=== PATIENT | female | born 1930 | race African-American/Black ===

== ENCOUNTER 2016-03-16 10:07 | Day surgery (SDC) | payer MEDICARE ==
[~2016-03-16 10:07] MED LIST: DORZ1SOL2 OU; LISI-587 PEG; OXYC5 PO; POTA25TA4 PEG
[2016-03-16 10:26] VITALS: BP 157/85; PULSE 69; RESP 18; TEMP 97.4; O2SAT 94
== END 2016-03-16 10:40 | disposition home or self-care (01) ==
LOC: HROP 10:07 → HRIP 10:08 → HROP 10:40
PROVIDERS: ATTEND Radiology Radiation Oncology
DX: Z43.1 Encounter for attention to gastrostomy (principal)

== ENCOUNTER 2017-09-21 06:26 | Inpatient (IN) ==
[2017-09-21] MEDS ORDERED: Acetaminophen 325 MG Tablet PO ONE (07:06)
[2017-09-21] MEDS ORDERED: Vancomycin Inj 1,000 MG in Sodium Chlor 0.9% Inj 250 ML IV.SIG ONE (07:06)
[2017-09-21] MEDS ORDERED: Piperacil/Tazo 4.5 GM Premix 4.5 GM/100 ML BAG IV.SIG ONE (07:08)
[2017-09-21] MEDS ORDERED: Sodium Chlor 0.9% Inj 500 ML IV.SIG ONE ×3 (07:09→15:42)
--- NOTE | 2017-09-21 07:12 | ED ---
HPI General Chief complaint: Weakness Stated complaint: Weakness Time Seen by Provider: 09/21/17 07:06 History of Present Illness HPI Narrative: 87-year-old female presents to the emergency department by EMS transport from home where family members have noticed her to have decreasing level of consciousness episodes of being unresponsive over the past several days. Patient appeared more weak this morning. Patient here reports that she has no chest pain no shortness of breath has some abdominal pain but mostly has rectal pain. Patient denies any other concerns or complaints. Patient was noted upon arrival triage vital signs to be tachycardic with a heart rate of 128 tachypnea with respiratory rate of 29 and febrile with temperature 102.8. Patient presented with supplemental oxygen 4 L/min nasal cannula with an O2 saturation of 94%. Patient states that she has had no cough. Patient is unable to identify exacerbating or alleviating factors. No family members are present at bedside to provide any further information. Per nursing reportedly per EMS reportedly per family patient is also had decreased urine output. Related Data Home Medications Medication Instructions Recorded Confirmed furosemide [Lasix] 40 mg PO DAILY 09/21/17 09/21/17 potassium chloride [Klor-Con 10] meq PO DAILY 09/21/17 Allergies Allergy/AdvReac Type Severity Reaction Status Date / Time No Known Allergies Allergy Uncoded 11/18/15 14:00 Review of Systems Except as stated in HPI: all other systems reviewed are negative (Limited but patient denies fever chest pain shortness of breath vomiting upper abdominal pain and family provided decreased urine output history-per nursing the) [facility] Medical History Medical History CHF (congestive heart failure) (Acute) Esophageal cancer (Acute) Glaucoma (Acute) HTN (hypertension) (Acute) Social History Social History Substance History: No History of Abuse Smoking Status: Never smoker How Often Do You Have a Drink Containing Alcohol: Never Recent Travel in [facility] within the Last 8 Weeks: No Recent Out of Country Travel within the Last 8 Weeks: No Exam Narrative Exam Narrative: GENERAL: Well-nourished, well-developed patient. Pleasant elderly female awake and oriented to name and able to answer simple questions. SKIN: Focused skin assessment warm/dry. HEAD: Normocephalic. EYES: No scleral icterus. No injection or drainage. NECK: Supple, trachea midline. No JVD or lymphadenopathy. CARDIOVASCULAR: Increased regular rate and rhythm without murmurs, gallops, or rubs. RESPIRATORY: Breath sounds equal bilaterally. No accessory muscle use. GASTROINTESTINAL: Abdomen soft, minimal suprapubic tenderness to palpation, nondistended. Rectal exam: Normal sphincter tone large bolus of very firm solid stool in the rectal vault that is brown and Hemoccult negative. MUSCULOSKELETAL: No cyanosis, or edema. Bilateral lower leg edema with dressings in place. BACK: Nontender without obvious deformity. No CVA tenderness. Course Initial Documented Vital Signs Pulse Rate 128 H 09/21/17 06:40 Respiratory Rate 29 H 09/21/17 06:40 Blood Pressure 100/61 09/21/17 06:40 Pulse Oximetry 94 L 09/21/17 06:40 Last Documented Vital Signs Temperature 102.8 F H 09/21/17 06:48 Pulse Rate 94 H 09/21/17 10:00 Respiratory Rate 22 09/21/17 10:00 Blood Pressure 91/56 L 09/21/17 10:00 Pulse Oximetry 100 09/21/17 10:00 Sign Out Sign Out Data: Patient Sign Out occurred on 09/21/17 at 09:25. Patient's care was discussed, and care was transferred from Dorcas Mcmillan MD to Pantera Cruz MD. Sign Out Comment: 87-year-old female with altered mentation with fever tachycardia tachypnea; patient will be managed for sepsis; imaging studies ordered as well CT brain noncontrast CT abdomen pelvis. Patient has received presumptive antibiotic coverage. Patient has prior history congestive heart failure will resuscitate with fluid hydration cautiously. Anticipate patient will require admission. Care signed over to oncoming physician Dr. Cruz. Last updated by Dorcas Mcmillan MD at 09/21/17 07:19 Post-Handoff Eval: This case was checked out to me by Dr. Mcmillan. I have evaluated the patient. She is critically ill. She came in in septic shock with fever and tachycardia hypotension. She has leukocytosis and elevated lactate and renal failure with a creatinine of 4. I see that she had a creatinine of 1.0 1 year ago. Chest x-ray shows a right-sided mass versus consolidation. Brain CT is negative and abdomen and pelvis CT is negative I had a lengthy discussion with the patient's daughter who lives with her. She is making her medical decisions. She is going to make her DO NOT RESUSCITATE but because she is very complicated and critically ill on placing her intensive care. Gave her An additional 1.5 L normal saline IV bolus on top of the original 500 cc. She does have history of CHF on Lasix so I am trying to hydrate her without flooding her lungs. Blood pressure initially came up to 101 systolic but now is dropped into the 90s. Tachycardia has improved and is now at 92 pulse rate I reviewed her ABG, maintaining 4 L nasal cannula I reviewed the case in detail with manager net. He will admit to [facility] and recommends chest CT which I have ordered. It will be done with no contrast. Patient is at IV vancomycin and IV Zosyn Source is likely from her legs. She has history of modest infection of the legs. Her dressings have bright green drainage on them which suggest Pseudomonas. Aggregate critical care time was 80 minutes. Time to perform other separately billable procedures was not included in the critical care time. My time did not include minutes spent treating any other patients simultaneously or on activities that did not directly contribute to the patient's treatment. The services I provided to this patient were to treat and/or prevent clinically significant deterioration that could result in: Cardiopulmonary arrest, septic shock, cardiac arrhythmia I provided critical care services requiring my management, as noted below: Chart data review, documentation time, medication orders and management, vital sign assessments/reviewing monitor data, ordering and reviewing lab tests, ordering and interpreting/reviewing x-rays and diagnostic studies, care of the patient and discussion of the patient with the admitting physicians. Patient had one peripheral IV when I took over the case. She clearly needed more IV access. I have placed bilateral external jugular IV sites so now we have [address] Medical Decision Making [facility] Narrative Medical decision making narrative: 87-year-old female presents to the emergency department from home by EMS transport for altered mentation and complaint of lower abdominal pain rectal pain as well as decreased urine output. Patient identified to have fever of 102.8 with tachypnea and tachycardia. Patient placed on phototypesetting equipment monitor with continuous pulse oximetry IV access obtained specimens collected and sent for resulting including lactic acid per sepsis protocol and blood cultures. Imaging studies ordered as well as CT brain noncontrast for altered mentation which most likely reflects patient's infectious state as well CT abdomen pelvis due to complaint of lower abdominal pain suspect may reflect large bolus of impacted stool at rectum. Patient administered IV fluid bolus urinary catheter placed and patient presumptively given Zosyn 4.5 g IV piggyback and vancomycin 1 g IV piggyback. Patient's care will be signed over to oncoming physician Differential Diagnosis Differential Diagnosis: Altered mental status, UTI, sepsis, TIA, CVA, ICH, ACS, ischemic bowel, diverticulitis, malignancy Medical Records Medical records reviewed: Yes I reviewed the patient's medical records. Multiple oncology notes from Dr. Funez regarding history of esophageal cancer last note was in 2017 provides past medical history to include hysterectomy cataract surgery hypertension CHF anemia chemotherapy and radiation therapy Lab Data Result diagrams: 09/21/17 07:22 09/21/17 07:22 Lab Results 09/21/17 09/21/17 09/21/17 Range/Units 07:22 07:22 07:22 WBC 21.1 H (4.0-11.0) th/mm3 RBC 4.94 (4.00-5.30) mil/mm3 Hgb 13.7 (11.6-15.3) gm/dL Hct 42.1 (35.0-46.0) % MCV 85.3 (80.0-100.0) fL MCH 27.7 (27.0-34.0) pg MCHC 32.5 (32.0-36.0) % RDW 15.2 (11.6-17.2) % Plt Count 214 (150-450) th/mm3 MPV 8.2 (7.0-11.0) fL Prelim Diff (Auto) Slide review pending Neut % (Auto) 90.1 H (16.0-70.0) % Lymph % (Auto) 1.9 L (9.0-44.0) % Webster % (Auto) 6.9 (0.0-8.0) % Eos % (Auto) 1.0 (0.0-4.0) % Baso % (Auto) 0.1 (0.0-2.0) % Neut # (Auto) 19.0 H (1.8-7.7) th/mm3 Lymph # (Auto) 0.4 L (1.0-4.8) th/mm3 Webster # (Auto) 1.5 H (0.0-0.9) th/mm3 Eos # (Auto) 0.2 (0.0-0.4) th/mm3 Baso # (Auto) 0.0 (0.0-0.2) th/mm3 WBC Differential . Diff Scan Auto diff confirmed Differential Comment . Platelet Estimate Normal (Normal) Platelet Morphology Normal (Normal) RBC Morphology Normal (Normal) PT 15.2 H (9.8-11.6) sec INR 1.5 Ratio Puncture Site Patient Temperature O2 Saturation (90-100) % ABG pH (7.380-7.420) ABG pCO2 (38-42) mmHg ABG pO2 (61-120) mmHg ABG HCO3 (22-26) mmol/L ABG O2 Content (12.0-20.0) Vol % ABG Base Excess (-2-2) mmol/L ABG Methemoglobin (0-2) % Brady Test Hemoglobin (12.0-16.0) G/DL Carboxyhemoglobin (0-4) % O2 Delivery Device Liter Flow L/M Critical Value Sodium 134 L (136-145) meq/L Potassium 3.6 (3.5-5.1) meq/L Chloride 94 L (98-107) meq/L Carbon Dioxide 28.3 (21.0-32.0) meq/L Anion Gap 12 (5-15) meq/L BUN 74 H (7-18) mg/dL Creatinine 4.04 H (0.50-1.00) mg/dL Estimated GFR 13 L (>89) mL/min Random Glucose 93 (74-106) mg/dL Lactic Acid (0.4-2.0) mmol/L Calcium 9.1 (8.5-10.1) mg/dL Total Bilirubin 0.9 (0.2-1.0) mg/dL AST 32 (15-37) U/L ALT 15 (10-53) U/L Alkaline Phosphatase 110 (45-117) U/L Troponin I Less than 0.02 L (0.02-0.05) ng/mL Total Protein 7.2 (6.4-8.2) g/dL Albumin 1.9 L (3.4-5.0) g/dL Lipase 35 L (73-393) U/L Urine Color (Yellw/Straw) Urine Clarity (Clear) Urine pH (5.0-8.5) Ur Specific [place] (1.002-1.035) Urine Protein (Neg-Trace) mg/dL Urine Glucose (UA) (Negative) mg/dL Urine Ketones (Negative) mg/dL Urine Occult Blood (Negative) Urine Nitrate (Negative) Urine Bilirubin (Negative) Urine Urobilinogen (Less than 2) mg/dL Ur Leukocyte Esterase (Negative) Urine RBC (0-3) /hpf Urine WBC (0-5) /hpf Urine WBC Clumps (None) Ur Squamous Epith Cells (0-5) /hpf Amorphous Sediment (None) /hpf Urine Bacteria (None) /hpf Hyaline Casts (0-3) /lpf Urine Mucus (Occasional) /lpf Micro UA Comment Urine Culture Comments 09/21/17 09/21/17 09/21/17 Range/Units 07:22 07:22 09:33 WBC (4.0-11.0) th/mm3 RBC (4.00-5.30) mil/mm3 Hgb (11.6-15.3) gm/dL Hct (35.0-46.0) % MCV (80.0-100.0) fL MCH (27.0-34.0) pg MCHC (32.0-36.0) % RDW (11.6-17.2) % Plt Count (150-450) th/mm3 MPV (7.0-11.0) fL Prelim Diff (Auto) Neut % (Auto) (16.0-70.0) % Lymph % (Auto) (9.0-44.0) % Webster % (Auto) (0.0-8.0) % Eos % (Auto) (0.0-4.0) % Baso % (Auto) (0.0-2.0) % Neut # (Auto) (1.8-7.7) th/mm3 Lymph # (Auto) (1.0-4.8) th/mm3 Webster # (Auto) (0.0-0.9) th/mm3 Eos # (Auto) (0.0-0.4) th/mm3 Baso # (Auto) (0.0-0.2) th/mm3 WBC Differential Diff Scan Differential Comment Platelet Estimate (Normal) Platelet Morphology (Normal) RBC Morphology (Normal) PT (9.8-11.6) sec INR Ratio Puncture Site Right radial Patient Temperature 98.6 O2 Saturation 96 (90-100) % ABG pH 7.42 (7.380-7.420) ABG pCO2 42 (38-42) mmHg ABG pO2 110 (61-120) mmHg ABG HCO3 27 H (22-26) mmol/L ABG O2 Content 17.3 (12.0-20.0) Vol % ABG Base Excess 2.5 H (-2-2) mmol/L ABG Methemoglobin 0.9 (0-2) % Brady Test + Hemoglobin 12.7 (12.0-16.0) G/DL Carboxyhemoglobin 1.0 (0-4) % O2 Delivery Device Nasal cannula Liter Flow 4.00 L/M Critical Value No Sodium (136-145) meq/L Potassium (3.5-5.1) meq/L Chloride (98-107) meq/L Carbon Dioxide (21.0-32.0) meq/L Anion Gap (5-15) meq/L BUN (7-18) mg/dL Creatinine (0.50-1.00) mg/dL Estimated GFR (>89) mL/min Random Glucose (74-106) mg/dL Lactic Acid 3.1 H (0.4-2.0) mmol/L Calcium (8.5-10.1) mg/dL Total Bilirubin (0.2-1.0) mg/dL AST (15-37) U/L ALT (10-53) U/L Alkaline Phosphatase (45-117) U/L Troponin I (0.02-0.05) ng/mL Total Protein (6.4-8.2) g/dL Albumin (3.4-5.0) g/dL Lipase (73-393) U/L Urine Color Lucrecia (Yellw/Straw) Urine Clarity Cloudy H (Clear) Urine pH 5.0 (5.0-8.5) Ur Specific [place] 1.016 (1.002-1.035) Urine Protein Negative (Neg-Trace) mg/dL Urine Glucose (UA) Negative (Negative) mg/dL Urine Ketones Negative (Negative) mg/dL Urine Occult Blood Small H (Negative) Urine Nitrate Negative (Negative) Urine Bilirubin Negative (Negative) Urine Urobilinogen 2.0 H (Less than 2) mg/dL Ur Leukocyte Esterase Negative (Negative) Urine RBC 5 H (0-3) /hpf Urine WBC 14 H (0-5) /hpf Urine WBC Clumps Rare H (None) Ur Squamous Epith Cells 3 (0-5) /hpf Amorphous Sediment Few H (None) /hpf Urine Bacteria Rare H (None) /hpf Hyaline Casts 43 (0-3) /lpf Urine Mucus Few H (Occasional) /lpf Micro UA Comment Cath-culture ind Urine Culture Comments Cath-cult indicated Imaging Data Radiologist's impression: Abdomen/Pelvis CT 09/21/17 07:06 CONCLUSION: 1. Bladder is decompressed secondary to Lambert catheter. No evidence for obstructive uropathy. 2. 2 mm nonobstructing calyceal calculus in the inferior pole of the left kidney. 3. Moderate amount of stool in the rectum. 4. Colonic diverticulosis without definitive evidence for diverticulitis. 5. Additional stable ancillary findings, as above. Chest X-Ray 09/21/17 07:06 CONCLUSION: New irregular opacification of the right mid-upper lung and right perihilar region. Underlying mass is not excluded. If clinically warranted, chest CT could be performed for further evaluation. Head CT 09/21/17 07:06 CONCLUSION: 1. Senescent changes without acute intracranial abnormality. . Discharge Plan Discharge Disposition Patient Disposition: 30 Still Patient Discharge Condition Condition: Critical Discharge Details Diagnosis: Septic shock, Acute renal injury due to sepsis Physicians Team ED Provider: Pantera Cruz Attending Provider: Danyell Sanchez Discharge Interventions Interventions: Vital Signs Last Done: 09/21/17 08:00 Status ED Status: Admitted Patient
--- NOTE | 2017-09-21 07:34 | XR ---
EXAM DATE: 09/21/2017 7:29 AM EDT AGE/SEX: 87 years / Female INDICATIONS: Shortness of breath. CLINICAL DATA: This is the patient's initial encounter. Patient reports that signs and symptoms have been present for 1 day and indicates a pain score of Nonresponsive. MEDICAL/SURGICAL HISTORY: Cardiovascular disease. Non-responsive. COMPARISON: [facility] [place], CHEST SINGLE AP, 11/18/2015. . FINDINGS: A single AP view of the chest demonstrates interval development of irregular opacification of the rig ht mid-upper lung and right perihilar region. Left lung remains clear. No significant pleural effusio n. Cardiac silhouette size is stable. Mild curvature of the visualized spine may be at least partiall y positional. CONCLUSION: New irregular opacification of the right mid-upper lung and right perihilar region. Underlying mass i s not excluded. If clinically warranted, chest CT could be performed for further evaluation. Electronically signed by: Denise Vila MD 09/21/2017 7:33 AM EDT
[2017-09-21 07:46] LABS: Baso % (Auto) 0.1 % (0.0-2.0); Eos # (Auto) 0.2 th/mm3 (0.0-0.4); Hematocrit 42.1 % (35.0-46.0); Hemoglobin 13.7 gm/dL (11.6-15.3); Lymph # (Auto) 0.4 th/mm3 (1.0-4.8); Lymph % (Auto) 1.9 % (9.0-44.0); Mean Corpuscular HGB Conc 32.5 % (32.0-36.0); Mean Corpuscular Hemoglobin 27.7 pg (27.0-34.0); Mean Corpuscular Volume 85.3 fL (80.0-100.0); Mean Platelet Volume 8.2 fL (7.0-11.0); Mono # (Auto) 1.5 th/mm3 (0.0-0.9); Mono % (Auto) 6.9 % (0.0-8.0); Neut % (Auto) 90.1 % (16.0-70.0); Platelet Count 214 th/mm3 (150-450); Red Blood Count 4.94 mil/mm3 (4.00-5.30); Red Cell Distribution Width 15.2 % (11.6-17.2); White Blood Count 21.1 th/mm3 (4.0-11.0)
--- NOTE | 2017-09-21 07:54 | CT ---
EXAM DATE: 09/21/2017 7:48 AM EDT AGE/SEX: 87 years / Female INDICATIONS: Altered mental status. Abdominal and rectal pain, with decreased urine out put CLINICAL DATA: This is the patient's initial encounter. Patient reports that signs and symptoms have been present for 1 day and indicates a pain score of 4/10. MEDICAL/SURGICAL HISTORY: Carcinoma, esophageal. None. RADIATION DOSE: 66.34 CTDI (mGy) COMPARISON: No prior exams available for comparison. TECHNIQUE: CT of the head without contrast. Using automated exposure control and adjustment of the mA and/or kV according to patient size, radiation dose was kept as low as reasonably achievable to ob tain optimal diagnostic quality images. DICOM format image data is available electronically for revi ew and comparison. FINDINGS: Cerebrum: Moderate diffuse cerebral atrophy. The ventricles are normal for degree of atrophy. No mark dence of midline shift, mass lesion, hemorrhage or acute infarction. No extraaxial fluid collections are seen. Posterior Fossa: The cerebellum and brainstem are intact. The 4th ventricle is midline. The cerebe llopontine angle is unremarkable. Extracranial: The visualized portion of the orbits is intact. Skull: The calvaria is intact. No evidence of skull fracture. CONCLUSION: 1. Senescent changes without acute intracranial abnormality. . Electronically signed by: Ravinder Cook MD 09/21/2017 7:53 AM EDT
[2017-09-21 07:56] LABS: Amorphous Sediment,Urine Few /hpf; Bacteria,Urine Rare /hpf; Bilirubin,Urine Negative (Negative); Clarity,Urine Cloudy (Clear); Color,Urine Amber (Yellw/Straw); Glucose,Urine (UA) Negative (Negative); Hyaline Casts,Urine 43 /lpf (0-3); INR 1.5 Ratio; Leukocyte Esterase,Urine Negative (Negative); Mucus,Urine Few /lpf (Occasional); Nitrite,Urine Negative (Negative); Prothrombin Time 15.2 sec (9.8-11.6); Specific Gravity,Urine 1.016 (1.002-1.035); Squamous Epithelial Cell,Urine 3 /hpf (0-5)
--- NOTE | 2017-09-21 08:00 | CT ---
EXAM DATE: 09/21/2017 7:49 AM EDT AGE/SEX: 87 years / Female INDICATIONS: Abdominal and rectal pain with decreased urine output CLINICAL DATA: This is the patient's initial encounter. Patient reports that signs and symptoms have been present for 1 day and indicates a pain score of 4/10. MEDICAL/SURGICAL HISTORY: Carcinoma, esophageal. None. RADIATION DOSE: 9.76 CTDI (mGy) COMPARISON: [facility], CT ABDOMEN W/O CONTRAST, 12/27/2016. . TECHNIQUE: Multiple contiguous axial images were obtained through the abdomen. Images were obtained using multiple row detector helical technique. Using automated exposure control and adjustment of the mA and/or kV according to patient size, radiation dose was kept as low as reasonably achievable to o btain optimal diagnostic quality images. DICOM format image data is available electronically for rev iew and comparison. FINDINGS: LOWER LUNGS: Trace right basilar pleural effusion and associated airspace disease. LIVER: Stable subcentimeter hypodense cystic lesion in segment 2 of the liver. Liver otherwise demon strates uniform density without intrahepatic ductal dilatation. Hyperdense material noted dependently in the gallbladder may reflect small stones or sludge. SPLEEN: Homogeneous density without enlargement. PANCREAS: Unremarkable without mass or calcification. KIDNEYS: Kidneys are symmetrical in size and without hydronephrosis. There is a 2 mm calyceal calcul us in the inferior pole of the left kidney. No significant contour deforming abnormalities. ADRENAL GLANDS: Unremarkable. AORTA: Amie-aneurysmal. BOWEL/MESENTERY: Moderate amount of stool in the rectum. Scattered colonic diverticula and moderate sigmoid diverticulosis. No definitive inflammatory change to suggest diverticulitis. Bowel are normal in caliber without evidence for obstruction. There is no free fluid or drainable fluid collections. No free air or pneumatosis. ABDOMINAL WALL: Intact. RETROPERITONEUM: No evidence of adenopathy in the retrocrural, para-aortic, or deep pelvic regions. BLADDER: Bladder is decompressed secondary to Lambert catheter. REPRODUCTIVE: Uterus is not visualized and likely surgically absent. BONY STRUCTURES: Mild levoscoliosis with multilevel degenerative spondylosis of the lumbar spine. CONCLUSION: 1. Bladder is decompressed secondary to Lambert catheter. No evidence for obstructive uropathy. 2. 2 mm nonobstructing calyceal calculus in the inferior pole of the left kidney. 3. Moderate amount of stool in the rectum. 4. Colonic diverticulosis without definitive evidence for diverticulitis. 5. Additional stable ancillary findings, as above. Electronically signed by: Ravinder Cook MD 09/21/2017 7:59 AM EDT
[2017-09-21 08:19] LABS: Albumin 1.9 g/dL (3.4-5.0); Anion Gap 12 meq/L (5-15); Aspartate Aminotransferase 32 U/L (15-37); Blood Urea Nitrogen 74 mg/dL (7-18); Calcium 9.1 mg/dL (8.5-10.1); Carbon Dioxide 28.3 meq/L (21.0-32.0); Chloride 94 meq/L (98-107); Glomerular Filtration Rate 13 mL/min (>89); Glucose,Random 93 mg/dL (74-106); Lipase 35 U/L (73-393); Potassium 3.6 meq/L (3.5-5.1); Sodium 134 meq/L (136-145)
[2017-09-21 08:20] LABS: Alanine Aminotransferase 15 U/L (10-53)
[2017-09-21 08:24] LABS: Alkaline Phosphatase 110 U/L (45-117); Total Protein 7.2 g/dL (6.4-8.2)
[2017-09-21 08:27] LABS: Platelet Estimate Normal (Normal); Platelet Morphology Normal (Normal); RBC Morphology Normal (Normal)
[2017-09-21] MEDS ORDERED: Acetaminophen 650 MG Supp RECTAL ONE (09:25)
[2017-09-21] MEDS ORDERED: Acetaminophen 325 MG Supp RECTAL ONE (09:26)
[2017-09-21] MEDS ORDERED: Sod Chloride 0.9% Inj 1,000 ML IV.SIG ONE (09:26)
[2017-09-21 09:43] LABS: ABG Base Excess 2.5 mmol/L (-2-2); ABG PCO2 42 mmHg (38-42); ABG PO2 110 mmHg (61-120)
[2017-09-21] MEDS ORDERED: Piperacil/Tazo 3.375 GM Premix 50 ML IV.SIG SCH (10:45)
[2017-09-21] MEDS ORDERED: Dextrose 50% in Water 50 ML Vial IV.PUSH PRN (10:50)
[2017-09-21] MEDS ORDERED: Vancomycin Consult Pharmacy 1 EACH OTHER SCH (11:00)
[2017-09-21] MEDS ORDERED: Heparin - SQ 10,000 UNITS/ML Vial SQ SCH (11:00)
--- NOTE | 2017-09-21 11:25 | CT ---
EXAM DATE: 09/21/2017 11:10 AM EDT AGE/SEX: 87 years / Female INDICATIONS: Evaluate for mass. CLINICAL DATA: This is the patient's initial encounter. Patient reports that signs and symptoms have been present for 1 day and indicates a pain score of 0/10. MEDICAL/SURGICAL HISTORY: Congestive heart failure. Hypertension. esophageal cancer None. RADIATION DOSE: 7.37 CTDI (mGy) COMPARISON: [facility] [place], CT THORAX W CONTRAST, 11/19/2015. . TECHNIQUE: Multiple contiguous axial images were obtained through the chest without contrast. Image s were obtained in suspended respiration using multiple row detector helical technique. Using automa kwame exposure control and adjustment of the mA and/or kV according to patient size, radiation dose was kept as low as reasonably achievable to obtain optimal diagnostic quality images. DICOM format imag e data is available electronically for review and comparison. FINDINGS: Lungs: There is a large multiseptated thin-walled cavity at the right lung apex containing small air -fluid level at its dependent portion. This finding is new when compared to the prior CT of 11/19/2015 . Large area of right upper lobe confluent opacity indicating pulmonary consolidation. Air bronchogra ms are noted. The consolidation also involves the medial right middle lobe. The left lung is clear. Mediastinum: No enlarged lymph nodes identified. There is marked dilatation with air-fluid level of the proximal to mid esophagus. Patient has a history of known esophageal cancer. Coronary artery calc ifications are noted. Mild diffuse prominence of the ascending aorta measuring 4.3 cm in diameter elly ssly unchanged from prior CT. Pleurae: Small right pleural effusion. Axillae: Unremarkable. Bony Structures: Unremarkable. Miscellaneous: Upper abdomen described on CT abdomen report. CONCLUSION: 1. Large area of right upper lobe pulmonary consolidation. Adjacent large thin-walled cavity with ai r-fluid level. This finding is new when compared to prior CT of 2016. No discrete central mass is neal ntified. Recommend follow-up to radiographic resolution. 2. Dilated proximal to mid esophagus again seen. Patient has known history of esophageal cancer. 3. Small right pleural effusion. Electronically signed by: Marcin Matt MD 09/21/2017 11:23 AM EDT
[2017-09-21] MEDS: Dextrose 5%/NaCl 0.9% Inj 1,000 ML IV.CONT SCH (11:33)
[2017-09-21] MEDS: Insulin NovoLOG Aspart Correctional Sugar Inj SQ SCH ×2 (11:37→17:54)
--- NOTE | 2017-09-21 13:43 | MH ---
cc: Danyell Sanchez MD DATE OF ADMISSION: 09/21/2017 HISTORY OF PRESENT ILLNESS: The patient is an 87-year-old female with a past medical history of hypertension, CHF, esophageal cancer, status post chemotherapy and radiation 1 year ago, who presented to [facility] ED with a decreased level of consciousness over the past several days. According to the patient's daughter, were DPOA. The patient has been having decreased p.o. intake and has been taking her medications for the past 1-2 weeks. She denies any history of chest pain, shortness of breath, cough or any constitutional symptoms. In addition, no history of any nausea, vomiting or abdominal pain. On arrival to the ER, she was tachycardic, tachypneic, and had a fever with temperature of 102.8. The patient was on 4 liter oxygen with saturation of 94%. LABORATORY DATA: Significant for leukocytosis with a WBC of 21.1 and renal failure with a creatinine of 4.0 and a BUN of 74. Her creatinine was 1.0 one year ago. Also, she has a mild elevation in lactic acid at 3.1. In the ED, she was given approximately 1.5 liters of NS, Zosyn, vancomycin and Tylenol. Due to altered mental status, a CT scan of the brain was obtained which showed no acute intracranial abnormalities. A chest x-ray in the ED showed a new irregular opacification of the right mid upper lung in the right perihilar region. Subsequently, the patient underwent a CT scan of the chest without contrast, which showed a right upper lobe pulmonary consolidation with a large thin-walled cavity with air fluid level. The patient also had a CT of the abdomen and pelvis in the ER, which showed a colonic diverticulosis, 2 mm nonobstructing calculi in the inferior pole of the left kidney. No evidence of any obstructive uropathy or acute abdominal findings. The patient had an ABG on 4 liters oxygen, which showed a pH of 7.42, CO2 42, PaO2 110, bicarbonate 27, sats of 96%. She was made a DNR by the ED physician. PAST MEDICAL HISTORY: Significant for CHF, esophageal cancer, glaucoma, hypertension. ALLERGIES: NO KNOWN DRUG ALLERGIES. SOCIAL HISTORY: Nonsmoker, nondrinker, lives with her daughter. FAMILY HISTORY: Noncontributing to present illness. MEDICATIONS AT HOME: Keflex and Lasix. REVIEW OF SYSTEMS: As per HPI. Rest of the review of systems is limited as the patient is a poor historian. PHYSICAL EXAMINATION: GENERAL: An 87-year-old female, critically ill, lying in bed, in no acute respiratory distress. VITAL SIGNS: Temperature 102.8, pulse of 94, blood pressure 91/56 with a MAP of 67, saturation 100% on 4 liter oxygen. HEENT: Atraumatic, normocephalic. Pupils are equal, round, reactive to light and accommodation. Extraocular muscles intact. Dry mucous membranes. NECK: Supple. No JVD, adenopathy or thyromegaly. Trachea in the midline. CARDIOVASCULAR: Tachycardic. Normal S1, S2. No murmurs, rubs or gallops noted. PULMONARY: Bilateral equal air entry. No rales or wheezing. ABDOMEN: Soft, nontender, nondistended, positive bowel sounds. EXTREMITIES: Bilateral lower extremity edema with dressings in place. NEUROLOGIC: No focal sensory deficit. LABORATORY DATA: WBC 21, hemoglobin 13.7, hematocrit 42, platelet count 214. INR 1.5, PT 15.2. Sodium 134, potassium 3.6, chloride 94, CO2 28, BUN 7, creatinine 4.04, glucose 93, lactic acid 3.1. Troponin less than 0.02. Albumin 1.9. Urinalysis showed 14 WBC, rare bacteria. RADIOGRAPHIC STUDIES: CT brain, no acute intracranial findings. CT abdomen and pelvis, colonic diverticulosis, nonobstructing calculi on the left kidney, no acute abdominal findings. A CT chest showed a pulmonary consolidation right upper lobe with a thin walled cavity with air fluid level. IMPRESSION: 1. Respiratory insufficiency. 2. Sepsis. 3. Altered mental status. 4. Right-sided pneumonia with a thin-walled cavity with air fluid level. 5. Acute renal failure. 6. Lactic acidemia. 7. Leukocytosis. 8. Urinary tract infection. 9. History of esophageal cancer, status post chemotherapy and radiation treatment 1 year ago. 10. History of hypertension. 11. History of congestive heart failure. RECOMMENDATIONS: 1. Monitor neuro status closely and avoid any sedatives. 2. Continue with oxygen and maintain sats above 92%. 3. Bronchodilators in the form of DuoNeb q. 4 plus q. 2 hours p.r.n. for shortness of breath. 4. CT chest reviewed. Monitor heart rate and blood pressure closely and maintain MAP greater than 65 mmHg. 5. Gentle IV hydration given history of CHF. She was given approximately 1.5 liter of normal saline in the emergency department. We will place on maintenance fluids, D5, NS at 75 mL an hour. 6. Serial lactic acid monitoring until clear. Monitor renal function, I's and O's and avoid nephrotoxins. IV fluids as stated above. 7. Her renal dysfunction is likely secondary to sepsis and acute tubular necrosis. CT abdomen and pelvis showed no evidence of any obstructive uropathy. I will consult renal service. 8. Will continue with broad spectrum antibiotics in the form of vancomycin and Zosyn. Adjust doses per renal function. Followup on blood and urine culture. In addition, we will check strep pneumonia and legionella urinary antigen. Consult infectious disease. 9. Keep n.p.o. for now. Place on Protonix 40 mg IV daily for gastrointestinal prophylaxis. 10. Place on sliding scale insulin with Accu-Chek's if needed for glycemic control. 11. Monitor CBC and coags. 12. Gastrointestinal prophylaxis with Protonix 40 mg daily and deep venous thrombosis prophylaxis with heparin subcutaneously. 13. The patient was made DNR by ED physician. I spoke to the patient's daughter, Camryn Macedo who is the POA and she confirmed the DNR status. She does not want any intubation or cardiac resuscitation in the event of a cardiopulmonary arrest. Palliative care was consulted to assist with goals of care. The patient is critically ill with severe sepsis, respiratory failure, renal failure, pneumonia, lactic acidemia. Critical care time 45 minutes excluding procedures. MD RENATA Cantu/REGINO , 12:57 PM , 01:15 PM
--- NOTE | 2017-09-21 14:01 | P.CONPAL ---
Consult Service: Palliative Care Requesting Physician: Danyell Sanchez Reason for Consult: a. To assist with evaluation and management of symptoms including: Dyspnea, encephalopathy b. To assist medical decision maker(s) with: better understanding of current medical conditions; weighing benefits/burdens of medical treatment options; making medical treatment decisions. Primary Care Provider: Gerardo Samule History of Present Illness History of Present Illness: This patient, with the records reporting 87 years old but the daughter insisting that the patient turned 88 in March, has a past history of diet- controlled diabetes, hypertension, anemia, blindness, possible CHF, and then had esophageal cancer in 2016. She underwent radiation/chemotherapy and the daughter reports there was no obvious residual malignancy. The patient has gradually been declining the last couple years, weaker, having more difficulty getting around at home. Over the last few days, her appetite has been diminished, she developed periods of confusion, and then seemed short of breath. She was brought to the emergency department earlier today, and findings included: * Some lethargy * Temp 102.8, pulse 128, respirations 28, blood pressure 91/50, oxygen saturation 94%. * White count 21.1, hemoglobin 13.7 * Sodium 134, creatinine 4.04, albumin 1.9 (her creatinine was 1.06 and 2016) * Lactic acid 3.1 * Chest x-ray with irregular consolidation on the right * CT head with chronic/senescent changes * CT abdomen/pelvis with no acute findings * CT chest with areas of consolidation in the right upper and right middle lobes , as well as an area with an air-fluid level in the right Cultures were obtained, fluids were administered, and antibiotics were started. The patient was admitted to intensive medical care. After fluid resuscitation , her blood pressure is now 98/60 while I am in his somewhat lethargic, but has been able to talk with her family. Palliative Care was consulted to assist with symptom management, and to enter into discussions with the patient/family regarding her illnesses, the prognosis , and the benefits and burdens of the various treatment choices. Function/Cognitive Trajectory: Until the past few days, the patient was able to ambulate around home by touching the vyas and sometimes using a walker. Review of Systems other (History from daughter and records and hospital staff) Constitutional: Reports body ache(s), Reports chills, Reports fever(s), Reports weakness Eyes: Reports loss of vision ("Blind" for 20 years) Ears, Nose, Mouth, and Throat: Denies lip swelling, Denies throat swelling Cardiovascular: Reports leg sores (Chronic), Reports leg swelling (Chronic), Reports shortness of breath, Denies chest pain, Denies rapid, pounding, or irregular heartbeat Respiratory: Reports cough, Reports shortness of breath, Denies wheezing Gastrointestinal: Denies black, tarry stools, Denies vomiting blood Genitourinary: Denies blood in urine Musculoskeletal: Denies joint swelling Skin/Breast: Denies itching, Denies lesions Neurologic: Reports weakness, Denies localized weakness, Denies convulsions Psychiatric: Denies panic attacks, Denies sensing things others do not sense Endocrine: Denies increased hunger, Denies increased thirst Hematologic/Lymphatic: Denies easy bruising Allergic/Immunologic: Denies hives PMFSH - History History Provided By: Patient, Family Member - Medical History Medical History: Medical History (Last Updated 09/21/17 @ 14:19 by Beth Reeder MD) Anemia Blindness CHF (congestive heart failure) Diabetes Esophageal cancer Glaucoma HTN (hypertension) - Surgical History Surgical History: Surgical History (Last Updated 09/21/17 @ 14:19 by Beth Reeder MD) Cataract (Acute) H/O hysterectomy for benign disease H/O oral surgery - Family History Family History: Family History (Last Updated 09/21/17 @ 14:28 by Beth Reeder MD) Father Respiratory failure Mother Cardiac abnormality - Tobacco History Second Hand Smoke Exposure: No Tobacco Use In Past 30 Days: No Smoking Status: Never smoker - Alcohol History How Often Do You Have a Drink Containing Alcohol: Never - Substance Use History Substance History: No History of Abuse - Travel History Recent Travel in the [facility] Within the Last 8 Weeks: No Recent Travel Out of the Country Within the Last 8 Weeks: No - Immunization History Tetanus Immunization: Unsure Medications and Allergies Active Medications: Active Medications Albuterol (Duoneb Neb (Bebeto)) 1 ampul NEB Q6HR NEB BEBETO Chlorhexidine Gluconate (Chlorhexidine 2% Cloth) 3 pack TOPICAL DAILY@0400 BEBETO Stop: 09/27/17 03:59 Chlorhexidine Gluconate (Chlorhexidine 2% Cloth) 3 pack TOPICAL DAILY@0400 PRN PRN Reason: Extra cloth needed Stop: 09/27/17 03:59 Dextrose (D50w Vial) 50 ml IV.PUSH UNSCH PRN PRN Reason: PER HYPOGLYCEMIA PROTOCOL Docusate Sodium (Colace) 100 mg PO BID BEBETO Glucagon (Glucagon Inj) 1 mg OTHER PRN PRN PRN Reason: for Hypoglycemia Protocol Heparin Sodium (Porcine) (Heparin Inj) 5,000 units SQ Q12H [facility] Last Admin: 09/21/17 11:33 Dose: 5,000 units Pharmacy Profile Note (Vancomycin Consult Pharmacy) 0 mls @ 0 mls/hr OTHER UNSCH BEBETO Dextrose/Sodium Chloride (D5w/Normal Saline Inj) 1,000 mls @ 75 mls/hr IV.CONT .[id number] [facility] Last Admin: 09/21/17 11:33 Dose: 75 mls/hr Piperacillin/Tazobactam/Dextrose (Zosyn 2.25 Gm Premix) 50 mls @ 100 mls/hr IV.SIG Q6H [facility] Insulin Aspart (Novolog Insulin Correctional Sugar Inj) 0 unit SQ Q6HR [facility]; Protocol Last Admin: 09/21/17 11:37 Dose: Not Given Pantoprazole Sodium (Protonix Inj) 40 mg IV.PUSH DAILY [facility] Sennosides (Senna Liq) 8.8 mg PO DAILY [facility] Sodium Chloride (Ns Flush) 2 ml IV.FLUSH PRN PRN PRN Reason: FLUSH AFTER USING IV ACCESS Allergies Allergy/AdvReac Type Severity Reaction Status Date / Time No Known Allergies Allergy Uncoded 11/18/15 14:00 Home Medications Medication Instructions Recorded Confirmed Type cephalexin [Keflex] 500 mg PO BID 09/21/17 09/21/17 History furosemide [Lasix] 40 mg PO DAILY 09/21/17 09/21/17 History potassium chloride [Klor-Con 10] meq PO DAILY 09/21/17 History Advance Directives Healthcare Surrogate: Yes Health Care Surrogate Name and Number: Daughter Camryn Macedo [phone] Family/friends goals: Patient's daughter reports that patient had expressed multiple times in recent months that she would not want to be on life support or resuscitated, and that quality and comfort be more important in her life. The daughter supports those wishes. Ethical and Legal Issues: There are no ethical issues that would impact her care were decision-making at this time. Patient is lethargic and lacks capacity for decision-making at this time. Her daughter is the designated HCS. Physical Exam Vital Signs: Vital Signs - 24 hr 09/21/17 06:40 09/21/17 06:48 09/21/17 07:06 Temperature 102.8 F H Pulse Rate 128 H 104 H Respiratory Rate 29 H 26 H Blood Pressure 100/61 90/53 L Pulse Oximetry 94 L 91 L 09/21/17 08:00 09/21/17 09:00 09/21/17 09:20 Temperature Pulse Rate 106 H 106 H 110 H Respiratory Rate 25 H 21 21 Blood Pressure 96/52 L 88/53 L 101/57 L Pulse Oximetry 91 L 92 L 09/21/17 10:00 09/21/17 11:40 09/21/17 12:00 Temperature 97.4 F L Pulse Rate 94 H 94 H 106 H Respiratory Rate 22 22 29 H Blood Pressure 91/56 L 95/53 L 111/87 Pulse Oximetry 100 98 09/21/17 13:00 Temperature Pulse Rate 107 H Respiratory Rate 31 H Blood Pressure 99/58 L Pulse Oximetry 100 I&O: Intake & Output 09/19/17 09/20/17 09/21/17 09/22/17 06:59 06:59 06:59 06:59 Intake Total 850 / 850 Balance 850 / 850 Weight 81.647 kg Physical Exam: CONSTITUTIONAL/GENERAL: This is an elderly, lethargic, weak patient, in no apparent distress. TUBES/LINES/DRAINS: Peripheral IVs in right arm and external jugs SKIN: No jaundice, rashes. The patient has extensive chronic edema and scaling bilateral below the knees. No wounds seen anteriorly. Skin temperature appropriate. Not diaphoretic. HEAD: Atraumatic. Normocephalic. EYES: Pupils equal and round and reactive. Extraocular motions intact. No scleral icterus. No injection or drainage. Fundi not examined. ENT: Hearing grossly normal. Nose without bleeding or purulent drainage. NECK: Trachea midline. Supple, nontender. No palpable thyroid enlargement or nodularity. CARDIOVASCULAR: Regular rate and rhythm with grade 2 systolic murmur. No JVD. Peripheral pulses not palpable in feet/ankles. RESPIRATORY/CHEST: Symmetric, unlabored respirations. Scattered rales on the right. GASTROINTESTINAL: Abdomen soft, non-tender, nondistended. No hepato-splenomegaly , or palpable masses. No guarding. Bowel sounds present. GENITOURINARY: Without palpable bladder distension. Lambert catheter in place. MUSCULOSKELETAL: Extremities without clubbing, cyanosis. There is edema and scaling below the/feet. No joint tenderness or effusion noted. No calf tenderness. No mottling or clubbing. LYMPHATICS: No palpable cervical or supraclavicular adenopathy. NEUROLOGICAL: Lethargic, moves extremities occasionally PSYCHIATRIC: No obvious anxiety/depression. no apparent hallucinations or other psychotic thought process. Diagnostic Tests Laboratory: Laboratory Results - last 72 hr 09/21/17 09/21/17 09/21/17 07:22 07:22 07:22 WBC 21.1 H RBC 4.94 Hgb 13.7 Hct 42.1 MCV 85.3 MCH 27.7 MCHC 32.5 RDW 15.2 Plt Count 214 MPV 8.2 Prelim Diff (Auto) Slide review pending Neut % (Auto) 90.1 H Lymph % (Auto) 1.9 L Bollinger % (Auto) 6.9 Eos % (Auto) 1.0 Baso % (Auto) 0.1 Neut # (Auto) 19.0 H Lymph # (Auto) 0.4 L Bollinger # (Auto) 1.5 H Eos # (Auto) 0.2 Baso # (Auto) 0.0 WBC Differential . Diff Scan Auto diff confirmed Differential Comment . Platelet Estimate Normal Platelet Morphology Normal RBC Morphology Normal PT 15.2 H INR 1.5 Puncture Site Patient Temperature O2 Saturation ABG pH ABG pCO2 ABG pO2 ABG HCO3 ABG O2 Content ABG Base Excess ABG Methemoglobin Brady Test Hemoglobin Carboxyhemoglobin O2 Delivery Device Liter Flow Critical Value Sodium 134 L Potassium 3.6 Chloride 94 L Carbon Dioxide 28.3 Anion Gap 12 BUN 74 H Creatinine 4.04 H Estimated GFR 13 L POC Glucose Random Glucose 93 Lactic Acid Calcium 9.1 Total Bilirubin 0.9 AST 32 ALT 15 Alkaline Phosphatase 110 Troponin I Less than 0.02 L Total Protein 7.2 Albumin 1.9 L Lipase 35 L Urine Color Urine Clarity Urine pH Ur Specific [place] Urine Protein Urine Glucose (UA) Urine Ketones Urine Occult Blood Urine Nitrate Urine Bilirubin Urine Urobilinogen Ur Leukocyte Esterase Urine RBC Urine WBC Urine WBC Clumps Ur Squamous Epith Cells Amorphous Sediment Urine Bacteria Hyaline Casts Urine Mucus Micro UA Comment Urine Culture Comments 09/21/17 09/21/17 09/21/17 07:22 07:22 09:33 WBC RBC Hgb Hct MCV MCH MCHC RDW Plt Count MPV Prelim Diff (Auto) Neut % (Auto) Lymph % (Auto) Bollinger % (Auto) Eos % (Auto) Baso % (Auto) Neut # (Auto) Lymph # (Auto) Bollinger # (Auto) Eos # (Auto) Baso # (Auto) WBC Differential Diff Scan Differential Comment Platelet Estimate Platelet Morphology RBC Morphology PT INR Puncture Site Right radial Patient Temperature 98.6 O2 Saturation 96 ABG pH 7.42 ABG pCO2 42 ABG pO2 110 ABG HCO3 27 H ABG O2 Content 17.3 ABG Base Excess 2.5 H ABG Methemoglobin 0.9 Brady Test + Hemoglobin 12.7 Carboxyhemoglobin 1.0 O2 Delivery Device Nasal cannula Liter Flow 4.00 Critical Value No Sodium Potassium Chloride Carbon Dioxide Anion Gap BUN Creatinine Estimated GFR POC Glucose Random Glucose Lactic Acid 3.1 H Calcium Total Bilirubin AST ALT Alkaline Phosphatase Troponin I Total Protein Albumin Lipase Urine Color Lucrecia Urine Clarity Cloudy H Urine pH 5.0 Ur Specific [place] 1.016 Urine Protein Negative Urine Glucose (UA) Negative Urine Ketones Negative Urine Occult Blood Small H Urine Nitrate Negative Urine Bilirubin Negative Urine Urobilinogen 2.0 H Ur Leukocyte Esterase Negative Urine RBC 5 H Urine WBC 14 H Urine WBC Clumps Rare H Ur Squamous Epith Cells 3 Amorphous Sediment Few H Urine Bacteria Rare H Hyaline Casts 43 Urine Mucus Few H Micro UA Comment Cath-culture ind Urine Culture Comments Cath-cult indicated 09/21/17 11:35 WBC RBC Hgb Hct MCV MCH MCHC RDW Plt Count MPV Prelim Diff (Auto) Neut % (Auto) Lymph % (Auto) Bollinger % (Auto) Eos % (Auto) Baso % (Auto) Neut # (Auto) Lymph # (Auto) Bollinger # (Auto) Eos # (Auto) Baso # (Auto) WBC Differential Diff Scan Differential Comment Platelet Estimate Platelet Morphology RBC Morphology PT INR Puncture Site Patient Temperature O2 Saturation ABG pH ABG pCO2 ABG pO2 ABG HCO3 ABG O2 Content ABG Base Excess ABG Methemoglobin Brady Test Hemoglobin Carboxyhemoglobin O2 Delivery Device Liter Flow Critical Value Sodium Potassium Chloride Carbon Dioxide Anion Gap BUN Creatinine Estimated GFR POC Glucose 75 Random Glucose Lactic Acid Calcium Total Bilirubin AST ALT Alkaline Phosphatase Troponin I Total Protein Albumin Lipase Urine Color Urine Clarity Urine pH Ur Specific [place] Urine Protein Urine Glucose (UA) Urine Ketones Urine Occult Blood Urine Nitrate Urine Bilirubin Urine Urobilinogen Ur Leukocyte Esterase Urine RBC Urine WBC Urine WBC Clumps Ur Squamous Epith Cells Amorphous Sediment Urine Bacteria Hyaline Casts Urine Mucus Micro UA Comment Urine Culture Comments Result Diagrams: 09/21/17 07:22 09/21/17 07:22 Imaging: Abdomen/Pelvis CT 09/21/17 07:06 CONCLUSION: 1. Bladder is decompressed secondary to Lambert catheter. No evidence for obstructive uropathy. 2. 2 mm nonobstructing calyceal calculus in the inferior pole of the left kidney. 3. Moderate amount of stool in the rectum. 4. Colonic diverticulosis without definitive evidence for diverticulitis. 5. Additional stable ancillary findings, as above. Chest X-Ray 09/21/17 07:06 CONCLUSION: New irregular opacification of the right mid-upper lung and right perihilar region. Underlying mass is not excluded. If clinically warranted, chest CT could be performed for further evaluation. Head CT 09/21/17 07:06 CONCLUSION: 1. Senescent changes without acute intracranial abnormality. . Chest CT 09/21/17 10:35 CONCLUSION: 1. Large area of right upper lobe pulmonary consolidation. Adjacent large thin- walled cavity with air-fluid level. This finding is new when compared to prior CT of 2016. No discrete central mass is identified. Recommend follow-up to radiographic resolution. 2. Dilated proximal to mid esophagus again seen. Patient has known history of esophageal cancer. 3. Small right pleural effusion. Patient/Family Conference Family Conference Time: 49 Family Conference Location: Consult Room Issues Discussed: * Palliative care role, purpose, approach * Hospice care role, purpose, approach * Additional medical, psychosocial, and spiritual history * Patients general health, functional status, and cognitive changes in the months leading up to the current hospitalization * Patient/family understanding of the current medical problems * Patient/family understanding of prognosis * Patients goals of care as best understood from advance directives and/or conversations and/or values * Current medical treatment options and benefits/burdens of those options * Likely scenarios comparing ongoing aggressive care with a transition to comfort measures only * Questions answered to the best of my ability * Palliative care contact information provided Assessment and Plan - Disease Oriented Problem List (1) Pneumonia (2) Anemia (3) Septic shock (4) Acute renal injury due to sepsis - Symptom Scale (1) Dyspnea 0-10 Scale: Unable to quantify Pertinent Non-Medical Issues: Psychosocial: The patient was born and raised in his lived her entire life here in the [facility]. She had 4 children, with 2 daughters living locally. One son at and one son at age 20. Spiritual: The patient has a Protestant background, and the daughter would like a bilingual legal assistant to visit. Legal: Patient is lethargic and lacks capacity for decision-making at this time. Her daughter is the designated HCS. Ethical issues impacting care: None Important Contacts: Daughter: Camryn Macedo [phone] Prognosis: Given her advanced age, steady recent decline, and now septic shock with renal failure, her overall prognosis is poor. She will be appropriate for hospice services if the goals become solely comfort oriented. Code Status: No Code DNR Plan: * DO NOT RESUSCITATE, per request of daughter 09/21/17 * DECISION-MAKING: Patient is lethargic and lacks capacity for decision-making at this time. Her daughter is the designated HCS. * GOALS: The patient's daughter wants to honor the patient's previously expressed wishes (quality and comfort more important than quantity of days), requesting DNR status at this time. If the patient's condition and renal function do not turn around/improve in the next couple days, the daughter would like to engage hospice services for end-of-life care. * SYMPTOMS: Patient has no obvious pain, and her dyspnea is currently managed with supplemental oxygen. I have no further medication orders at this time. * Mopper visit requested. * Palliative Care will continue to follow the patient during this hospitalization. Time Spent Total Floor Time (mins): 81 Face to Face Time (mins): 19 >50% Time in Counseling or Coordination of Care: Yes (d/w RN and w Dr. Hughes) Appreciation Thank you for the opportunity to participate in the care of Stephanie Galindo JosephHolly.
[2017-09-21 14:18] LABS: Eos # (Auto) 0.3 th/mm3 (0.0-0.4); Eos % (Auto) 1.4 % (0.0-4.0); Hematocrit 38.6 % (35.0-46.0); Hemoglobin 12.1 gm/dL (11.6-15.3); Lymph # (Auto) 0.6 th/mm3 (1.0-4.8); Lymph % (Auto) 2.6 % (9.0-44.0); Mean Corpuscular HGB Conc 31.5 % (32.0-36.0); Mean Corpuscular Hemoglobin 27.2 pg (27.0-34.0); Mean Corpuscular Volume 86.3 fL (80.0-100.0); Mono # (Auto) 1.7 th/mm3 (0.0-0.9); Mono % (Auto) 7.8 % (0.0-8.0); Neut # (Auto) 19.2 th/mm3 (1.8-7.7); Neut % (Auto) 88.2 % (16.0-70.0); Platelet Count 192 th/mm3 (150-450); Red Blood Count 4.47 mil/mm3 (4.00-5.30); Red Cell Distribution Width 15.1 % (11.6-17.2); White Blood Count 21.7 th/mm3 (4.0-11.0)
[2017-09-21 14:35] LABS: Calcium 8.4 mg/dL (8.5-10.1); Carbon Dioxide 28.5 meq/L (21.0-32.0); Potassium 3.8 meq/L (3.5-5.1)
[2017-09-21] MEDS: Piperacil/Tazo 2.25 GM Premix 50 ML IV.SIG SCH ×2 (15:30→21:35)
--- NOTE | 2017-09-21 16:04 | P.CONNP ---
<Jose GlesShiela orona - Last Filed: 09/21/17 15:40> History of Present Illness Service: Nephrology Consult date: 09/21/17 Requesting Physician: Danyell Sanchez Reason for Consult: Acute renal failure Primary Care Provider: Gerardo Samuel History of Present Illness: Patient is an 87-year-old female with a past medical history of hypertension, CHF, esophageal cancer, status post chemotherapy and radiation 1 year ago. Presented to [facility] ED with a decreased level of consciousness. Patient is lethargic during exam and difficult to arouse. DNR status. According to daughter she has had decreased PO intake for the past 2 weeks. In the emergency room she was found to be tachycardic,hypotensive and febrile. CT of chest with large area of right upper lobe pulmonary consolidation. Adjacent large thin-walled cavity with air-fluid level. Nephrology is consulted for acute renal failure with a creatinine of 4.04 on admission and 3.79 today. Potassium is normal. Urinalysis is also abnormal with culture pending. Per daughter does not have previous history of chronic kidney disease and creatinine on 07/21/[address] of abdomen showing kidneys with symmetrical in size and without hydronephrosis. There is a 2 mm calyceal calculus in the inferior pole of the left kidney. No significant contour deforming abnormalities. Review of Systems unobtainable due to mental status PMFSH - History History Provided By: Patient, Family Member - Medical History Medical History: Medical History (Last Updated 09/21/17 @ 14:19 by Beth Reeder MD) Anemia Blindness CHF (congestive heart failure) Diabetes Esophageal cancer Glaucoma HTN (hypertension) - Surgical History Surgical History: Surgical History (Last Updated 09/21/17 @ 14:19 by Beth Reeder MD) Cataract (Acute) H/O hysterectomy for benign disease H/O oral surgery - Family History Family History: Family History (Last Updated 09/21/17 @ 14:28 by Beth Reeder MD) Father Respiratory failure Mother Cardiac abnormality - Tobacco History Second Hand Smoke Exposure: No Tobacco Use In Past 30 Days: No Smoking Status: Never smoker - Alcohol History How Often Do You Have a Drink Containing Alcohol: Never - Substance Use History Substance History: No History of Abuse - Travel History Recent Travel in the [facility] Within the Last 8 Weeks: No Recent Travel Out of the Country Within the Last 8 Weeks: No - Immunization History Tetanus Immunization: Unsure Medications and Allergies Allergies Allergy/AdvReac Type Severity Reaction Status Date / Time No Known Allergies Allergy Uncoded 11/18/15 14:00 Home Medications Medication Instructions Recorded Confirmed Type cephalexin [Keflex] 500 mg PO BID 09/21/17 09/21/17 History furosemide [Lasix] 40 mg PO DAILY 09/21/17 09/21/17 History potassium chloride [Klor-Con 10] meq PO DAILY 09/21/17 History Active Medications: Active Medications Albuterol (Duoneb Neb ([facility])) 1 ampul NEB Q6HR NEB [facility] Last Admin: 09/21/17 15:22 Dose: 1 ampul Chlorhexidine Gluconate (Chlorhexidine 2% Cloth) 3 pack TOPICAL DAILY@0400 AD Stop: 09/27/17 03:59 Chlorhexidine Gluconate (Chlorhexidine 2% Cloth) 3 pack TOPICAL DAILY@0400 PRN PRN Reason: Extra cloth needed Stop: 09/27/17 03:59 Dextrose (D50w Vial) 50 ml IV.PUSH UNSCH PRN PRN Reason: PER HYPOGLYCEMIA PROTOCOL Docusate Sodium (Colace) 100 mg PO BID [facility] Glucagon (Glucagon Inj) 1 mg OTHER PRN PRN PRN Reason: for Hypoglycemia Protocol Heparin Sodium (Porcine) (Heparin Inj) 5,000 units SQ Q12H [facility] Last Admin: 09/21/17 11:33 Dose: 5,000 units Pharmacy Profile Note (Vancomycin Consult Pharmacy) 0 mls @ 0 mls/hr OTHER UNSCH [facility] Dextrose/Sodium Chloride (D5w/Normal Saline Inj) 1,000 mls @ 75 mls/hr IV.CONT .[id number] [facility] Last Admin: 09/21/17 11:33 Dose: 75 mls/hr Piperacillin/Tazobactam/Dextrose (Zosyn 2.25 Gm Premix) 50 mls @ 100 mls/hr IV.SIG Q6H [facility] Last Admin: 09/21/17 15:30 Dose: 100 mls/hr Insulin Aspart (Novolog Insulin Correctional Sugar Inj) 0 unit SQ Q6HR [facility]; Protocol Last Admin: 09/21/17 11:37 Dose: Not Given Pantoprazole Sodium (Protonix Inj) 40 mg IV.PUSH DAILY [facility] Sennosides (Senna Liq) 8.8 mg PO DAILY AD Sodium Chloride (Ns Flush) 2 ml IV.FLUSH PRN PRN PRN Reason: FLUSH AFTER USING IV ACCESS Exam Vital signs: Vital Signs 09/21/17 06:40 09/21/17 06:48 09/21/17 07:06 Temperature 102.8 F H Pulse Rate 128 H 104 H Respiratory Rate 29 H 26 H Blood Pressure 100/61 90/53 L Pulse Oximetry 94 L 91 L 09/21/17 08:00 09/21/17 09:00 09/21/17 09:20 Temperature Pulse Rate 106 H 106 H 110 H Respiratory Rate 25 H 21 21 Blood Pressure 96/52 L 88/53 L 101/57 L Pulse Oximetry 91 L 92 L 09/21/17 10:00 09/21/17 11:40 09/21/17 12:00 Temperature 97.4 F L Pulse Rate 94 H 94 H 106 H Respiratory Rate 22 22 29 H Blood Pressure 91/56 L 95/53 L 111/87 Pulse Oximetry 100 98 09/21/17 13:00 09/21/17 14:00 09/21/17 15:00 Temperature Pulse Rate 107 H 95 H 95 H Respiratory Rate 31 H 23 34 H Blood Pressure 99/58 L 83/53 L 82/67 L Pulse Oximetry 100 100 100 09/21/17 15:24 Temperature Pulse Rate 95 H Respiratory Rate 24 Blood Pressure Pulse Oximetry Intake & Output 09/20/17 09/21/17 09/21/17 18:59 06:59 18:59 Intake Total 850 / 850 Balance 850 / 850 Weight 81.647 kg Intake: IV 850 / 850 Zosyn 4.5 GM Premix 4.5 gm In 100 / 100 100 ml @ 200 mls/hr IV.SIG ONCE ONE Rx#:[id number] NS Inj 500 ML @ Wide Open IV. 500 / 500 SIG BOLUS ONE Rx#:[id number] Vancomycin Inj 1,000 MG In NS 250 / 250 Inj 250 ML @ 250 mls/hr IV.SIG ONCE ONE Rx#:[id number] Narrative: GENERAL: Lethargic elderly female, difficult to arouse. SKIN: Warm and dry HEAD: Normocephalic. NECK: Supple, trachea midline. No JVD or lymphadenopathy. CARDIOVASCULAR: regular rate and rhythm without murmurs, gallops, or rubs. RESPIRATORY: Breath sounds equal bilaterally. No accessory muscle use. GASTROINTESTINAL: Abdomen soft, non tender MUSCULOSKELETAL: No cyanosis, or edema. Bilateral lower leg edema BACK: Nontender without obvious deformity. No CVA tenderness. Results - Lab Results 09/21/17 14:03 09/21/17 14:03 Most recent lab results ABG pH 7.42 (7.380-7.420) 09/21/17 09:33 ABG pCO2 42 mmHg (38-42) 09/21/17 09:33 ABG pO2 110 mmHg (61-120) 09/21/17 09:33 ABG HCO3 27 mmol/L (22-26) H 09/21/17 09:33 Calcium 8.4 mg/dL (8.5-10.1) L 09/21/17 14:03 Assessment and Plan - Assessment (1) Acute renal injury due to sepsis Code(s): A41.9 - Sepsis, unspecified organism; R65.20 - Severe sepsis without septic shock; N17.9 - Acute kidney failure, unspecified Status: Acute Plan: Acute renal failure with a creatinine of 4.04 on admission and 3.79 today. Acute kidney injury most likely ATN from sepsis and hypotension Per daughter does not have previous history of chronic kidney disease and creatinine on 07/21/[address] of abdomen showing kidneys with symmetrical in size and without hydronephrosis. There is a 2 mm calyceal calculus in the inferior pole of the left kidney. No significant contour deforming abnormalities. Creatinine 4.04 ->3.79 Urinary output is decreased Monitor urinary output and BMP Strict I+O Avoid nephrotoxins including IV contrast and aminoglycosides Maintain a MAP of 65 mmhg Continue gentle hydration Labs in AM Per palliative care note, If the patient's condition and renal function do not turn around/improve in the next couple days, the daughter would like to engage hospice services for end-of-life care. Code status is DNR (2) Pneumonia Code(s): J18.9 - Pneumonia, unspecified organism Status: Acute Plan: Renal dose antibiotics <Toni Joseph - Last Filed: 09/22/17 11:27> History of Present Illness Primary Care Provider: Gerardo Samuel [facility] - Medical History Medical History: Medical History (Last Updated 09/21/17 @ 14:19 by Beth Reeder MD) Anemia Blindness CHF (congestive heart failure) Diabetes Esophageal cancer Glaucoma HTN (hypertension) - Surgical History Surgical History: Surgical History (Last Updated 09/21/17 @ 14:19 by Beth Reeder MD) Cataract (Acute) H/O hysterectomy for benign disease H/O oral surgery - Family History Family History: Family History (Last Updated 09/21/17 @ 14:28 by Beth Reeder MD) Father Respiratory failure Mother Cardiac abnormality Exam Vital signs: Vital Signs 09/21/17 11:40 09/21/17 12:00 09/21/17 13:00 Temperature 97.4 F L Pulse Rate 94 H 106 H 107 H Respiratory Rate 22 29 H 31 H Blood Pressure 95/53 L 111/87 99/58 L Pulse Oximetry 98 100 09/21/17 14:00 09/21/17 15:00 09/21/17 15:24 Temperature Pulse Rate 95 H 95 H 95 H Respiratory Rate 23 34 H 24 Blood Pressure 83/53 L 82/67 L Pulse Oximetry 100 100 09/21/17 16:00 09/21/17 17:00 09/21/17 18:00 Temperature 96.7 F L Pulse Rate 86 87 95 H Respiratory Rate 24 22 26 H Blood Pressure 97/58 L 103/61 101/65 Pulse Oximetry 100 94 L 87 L 09/21/17 19:00 09/21/17 20:00 09/21/17 20:43 Temperature 97.2 F L Pulse Rate 97 H 106 H 101 H Respiratory Rate 23 24 24 Blood Pressure 114/76 146/75 H Pulse Oximetry 87 L 89 L 09/21/17 20:53 09/21/17 21:00 09/21/17 22:00 Temperature Pulse Rate 102 H 99 H Respiratory Rate 23 21 Blood Pressure 116/64 111/68 Pulse Oximetry 88 L 91 L 90 L 09/21/17 23:00 09/22/17 00:00 09/22/17 01:00 Temperature 97.0 F L Pulse Rate 104 H 100 H 118 H Respiratory Rate 22 20 23 Blood Pressure 113/74 103/66 119/67 Pulse Oximetry 93 L 92 L 92 L 09/22/17 02:00 09/22/17 03:00 09/22/17 03:59 Temperature Pulse Rate 117 H 117 H 116 H Respiratory Rate 22 22 22 Blood Pressure 108/69 109/69 Pulse Oximetry 89 L 90 L 09/22/17 04:00 09/22/17 05:00 09/22/17 06:00 Temperature 96.9 F L Pulse Rate 117 H 111 H 103 H Respiratory Rate 23 24 15 Blood Pressure 118/72 125/68 136/79 Pulse Oximetry 92 L 92 L Intake & Output 09/21/17 09/22/17 09/22/17 18:59 06:59 18:59 Intake Total 1400 / 1400 1050 / 1050 Output Total 300 / 300 225 / 225 Balance 1100 / 1100 825 / 825 Weight 77.2 kg Intake: IV 1400 / 1400 1050 / 1050 D5W/Normal Saline Inj 1,000 ML 1000 / 1000 @ 75 mls/hr IV.CONT .[id number] AD Rx#:[id number] Zosyn 2.25 GM Premix 50 ML @ 50 / 50 50 / 50 100 mls/hr IV.SIG Q6H [facility] Rx#: [id number] Zosyn 4.5 GM Premix 4.5 gm In 100 / 100 100 ml @ 200 mls/hr IV.SIG ONCE ONE Rx#:[id number] NS Inj 500 ML @ Wide Open IV. 1000 / 1000 SIG BOLUS ONE Rx#:[id number] Vancomycin Inj 1,000 MG In NS 250 / 250 Inj 250 ML @ 250 mls/hr IV.SIG ONCE ONE Rx#:[id number] Oral 0 / 0 Output: Urine Amount (Catheter) 300 / 300 225 / 225 Indwelling Urethral Catheter 300 / 300 225 / 225 Results - Lab Results 09/22/17 05:03 09/21/17 14:03 Most recent lab results ABG pH 7.42 (7.380-7.420) 09/21/17 09:33 ABG pCO2 42 mmHg (38-42) 09/21/17 09:33 ABG pO2 110 mmHg (61-120) 09/21/17 09:33 ABG HCO3 27 mmol/L (22-26) H 09/21/17 09:33 Calcium 8.4 mg/dL (8.5-10.1) L 09/21/17 14:03 Assessment and Plan - Assessment (1) Acute renal injury due to sepsis Code(s): A41.9 - Sepsis, unspecified organism; R65.20 - Severe sepsis without septic shock; N17.9 - Acute kidney failure, unspecified Status: Acute (2) Pneumonia Code(s): J18.9 - Pneumonia, unspecified organism Status: Acute - Attending Attestation Patient seen and examined, agree with above. Has possible chronic kidney disease and MAURO. Creatinine almost same, K is normal. Patient is DNR. Avoid Nephrotoxins. Follow the urine out put and bmp.
--- NOTE | 2017-09-21 16:52 | P.CONID ---
History of Present Illness Service: ID Consult date: 09/21/17 Requesting Physician: Danyell Sanchez Reason for Consult: sepsis Primary Care Provider: Gerardo Samuel History of Present Illness: 87 yo female with h/o esophageal cancer 2 yrs ago sp XRT treatent brought by her daughter who s caregiver 2/2 lethargy, weakness Pt on presentation hypoxic, now on NRB She is febrile with T max of 102.8 and her WBC is 21 K He dgtr is @ b/s and she gave me the history Pt apparently started to experience difficulty swallowing " food does not going down" she also has productive cough with bloody sputum today Her CT w/o contrast showed thin walled fluid filled cavity Pt was started on zosyn, vancomycin Pt has very dark urine, oliguria and decreased GFR. Per dgtr pt did not have prior kidney problems Pt is DNR and family plan hospice if pt not improves in 48 hrs Lactic acidosis of 3.0 Hemoptysis during my exam Review of Systems unobtainable due to mental status (pt is lethargic and in resp distress) PMFSH - History History Provided By: Patient, Family Member - Medical History Medical History: Medical History (Last Reviewed 09/21/17 @ 16:20 by Maura Fernandez MD) Anemia Blindness CHF (congestive heart failure) Diabetes Esophageal cancer Glaucoma HTN (hypertension) - Surgical History Surgical History: Surgical History (Last Reviewed 09/21/17 @ 16:21 by Maura Fernandez MD) Cataract (Acute) H/O hysterectomy for benign disease H/O oral surgery - Family History Family History: Family History (Last Reviewed 09/21/17 @ 16:21 by Maura Fernandez MD) Father Respiratory failure Mother Cardiac abnormality - Tobacco History Second Hand Smoke Exposure: No Tobacco Use In Past 30 Days: No Smoking Status: Never smoker - Alcohol History How Often Do You Have a Drink Containing Alcohol: Never - Substance Use History Substance History: No History of Abuse - Travel History Recent Travel in the [place] Within the Last 8 Weeks: No Recent Travel Out of the Country Within the Last 8 Weeks: No - Immunization History Tetanus Immunization: Unsure Medications and Allergies Active Medications: Active Medications Albuterol (Duoneb Neb (Bebeto)) 1 ampul NEB Q6HR NEB BEBETO Last Admin: 09/21/17 15:22 Dose: 1 ampul Chlorhexidine Gluconate (Chlorhexidine 2% Cloth) 3 pack TOPICAL DAILY@0400 BEBETO Stop: 09/27/17 03:59 Chlorhexidine Gluconate (Chlorhexidine 2% Cloth) 3 pack TOPICAL DAILY@0400 PRN PRN Reason: Extra cloth needed Stop: 09/27/17 03:59 Dextrose (D50w Vial) 50 ml IV.PUSH UNSCH PRN PRN Reason: PER HYPOGLYCEMIA PROTOCOL Docusate Sodium (Colace) 100 mg PO BID [facility] Glucagon (Glucagon Inj) 1 mg OTHER PRN PRN PRN Reason: for Hypoglycemia Protocol Heparin Sodium (Porcine) (Heparin Inj) 5,000 units SQ Q12H [facility] Last Admin: 09/21/17 11:33 Dose: 5,000 units Pharmacy Profile Note (Vancomycin Consult Pharmacy) 0 mls @ 0 mls/hr OTHER UNSCH [facility] Dextrose/Sodium Chloride (D5w/Normal Saline Inj) 1,000 mls @ 75 mls/hr IV.CONT .[id number] [facility] Last Admin: 09/21/17 11:33 Dose: 75 mls/hr Piperacillin/Tazobactam/Dextrose (Zosyn 2.25 Gm Premix) 50 mls @ 100 mls/hr IV.SIG Q6H [facility] Last Admin: 09/21/17 15:30 Dose: 100 mls/hr Insulin Aspart (Novolog Insulin Correctional Sugar Inj) 0 unit SQ Q6HR [facility]; Protocol Last Admin: 09/21/17 11:37 Dose: Not Given Pantoprazole Sodium (Protonix Inj) 40 mg IV.PUSH DAILY [facility] Sennosides (Senna Liq) 8.8 mg PO DAILY [facility] Sodium Chloride (Ns Flush) 2 ml IV.FLUSH PRN PRN PRN Reason: FLUSH AFTER USING IV ACCESS Allergies Allergy/AdvReac Type Severity Reaction Status Date / Time No Known Allergies Allergy Uncoded 11/18/15 14:00 Home Medications Medication Instructions Recorded Confirmed Type cephalexin [Keflex] 500 mg PO BID 09/21/17 09/21/17 History furosemide [Lasix] 40 mg PO DAILY 09/21/17 09/21/17 History potassium chloride [Klor-Con 10] meq PO DAILY 09/21/17 History Exam Vital signs: Vital Signs 09/21/17 06:40 09/21/17 06:48 09/21/17 07:06 Temperature 102.8 F H Pulse Rate 128 H 104 H Respiratory Rate 29 H 26 H Blood Pressure 100/61 90/53 L Pulse Oximetry 94 L 91 L 09/21/17 08:00 09/21/17 09:00 09/21/17 09:20 Temperature Pulse Rate 106 H 106 H 110 H Respiratory Rate 25 H 21 21 Blood Pressure 96/52 L 88/53 L 101/57 L Pulse Oximetry 91 L 92 L 09/21/17 10:00 09/21/17 11:40 09/21/17 12:00 Temperature 97.4 F L Pulse Rate 94 H 94 H 106 H Respiratory Rate 22 22 29 H Blood Pressure 91/56 L 95/53 L 111/87 Pulse Oximetry 100 98 09/21/17 13:00 09/21/17 14:00 09/21/17 15:00 Temperature Pulse Rate 107 H 95 H 95 H Respiratory Rate 31 H 23 34 H Blood Pressure 99/58 L 83/53 L 82/67 L Pulse Oximetry 100 100 100 09/21/17 15:24 09/21/17 16:00 Temperature Pulse Rate 95 H 86 Respiratory Rate 24 24 Blood Pressure 97/58 L Pulse Oximetry 100 Intake & Output 09/20/17 09/21/17 09/21/17 18:59 06:59 18:59 Intake Total 850 / 850 Balance 850 / 850 Weight 81.647 kg Intake: IV 850 / 850 Zosyn 4.5 GM Premix 4.5 gm In 100 / 100 100 ml @ 200 mls/hr IV.SIG ONCE ONE Rx#:[id number] NS Inj 500 ML @ Wide Open IV. 500 / 500 SIG BOLUS ONE Rx#:[id number] Vancomycin Inj 1,000 MG In NS 250 / 250 Inj 250 ML @ 250 mls/hr IV.SIG ONCE ONE Rx#:[id number] - Constitutional moderate distress (On 100% NRB) - Routine HEENT Exam Head: Present: normocephalic, atraumatic ENT: Present: mucous membranes dry Comments: pt is blind no icterus large amount o f oral secretions poolde in her mouth poor dentition - Routine Neck Exam Present: supple, full ROM - Routine Respiratory Exam Present: accessory muscle use, respiratory distress, rhonchi (very extensive b/ l ) - Routine Cardiovascular Exam Present: S1, S2, tachycardia Comments: no murmurs, rubs or gallops - Routine Abdominal Exam Present: soft, normoactive bowel sounds Comments: not tender not distended nno organomegaly or masses - Routine Exam Comments: lino cath in place with small amount of brown-red urine - Routine Extremities Exam Present: edema (with prominent tree bark chin ), normal capillary refill Comments: no cyanosis, no clubbing - Routine Skin Exam Present: dry, cracked Comments: no rash - Routine Neurological Exam Present: altered mental status (lethargic, arousable, following commands, prominent generalysed weakness, + verbal) - Routine Psychiatric Exam Present: unable to assess Results - Labs CBC & Chem 7: 09/21/17 14:03 09/21/17 14:03 Labs: Laboratory Results - last 24 hr 09/21/17 09/21/17 09/21/17 07:22 07:22 07:22 WBC 21.1 H RBC 4.94 Hgb 13.7 Hct 42.1 MCV 85.3 MCH 27.7 MCHC 32.5 RDW 15.2 Plt Count 214 MPV 8.2 Prelim Diff (Auto) Slide review pending Neut % (Auto) 90.1 H Lymph % (Auto) 1.9 L Waller % (Auto) 6.9 Eos % (Auto) 1.0 Baso % (Auto) 0.1 Neut # (Auto) 19.0 H Lymph # (Auto) 0.4 L Waller # (Auto) 1.5 H Eos # (Auto) 0.2 Baso # (Auto) 0.0 WBC Differential . Diff Scan Auto diff confirmed Differential Comment . Platelet Estimate Normal Platelet Morphology Normal RBC Morphology Normal Hematology Comments PT 15.2 H INR 1.5 Puncture Site Patient Temperature O2 Saturation ABG pH ABG pCO2 ABG pO2 ABG HCO3 ABG O2 Content ABG Base Excess ABG Methemoglobin Brady Test Hemoglobin Carboxyhemoglobin O2 Delivery Device Liter Flow Critical Value Sodium 134 L Potassium 3.6 Chloride 94 L Carbon Dioxide 28.3 Anion Gap 12 BUN 74 H Creatinine 4.04 H Estimated GFR 13 L POC Glucose Random Glucose 93 Lactic Acid Calcium 9.1 Total Bilirubin 0.9 AST 32 ALT 15 Alkaline Phosphatase 110 Troponin I Less than 0.02 L Total Protein 7.2 Albumin 1.9 L Lipase 35 L Urine Color Urine Clarity Urine pH Ur Specific Lindley Urine Protein Urine Glucose (UA) Urine Ketones Urine Occult Blood Urine Nitrate Urine Bilirubin Urine Urobilinogen Ur Leukocyte Esterase Urine RBC Urine WBC Urine WBC Clumps Ur Squamous Epith Cells Amorphous Sediment Urine Bacteria Hyaline Casts Urine Mucus Micro UA Comment Urine Culture Comments Nasal Screen MRSA (PCR) 09/21/17 09/21/17 09/21/17 07:22 07:22 09:33 WBC RBC Hgb Hct MCV MCH MCHC RDW Plt Count MPV Prelim Diff (Auto) Neut % (Auto) Lymph % (Auto) Waller % (Auto) Eos % (Auto) Baso % (Auto) Neut # (Auto) Lymph # (Auto) Waller # (Auto) Eos # (Auto) Baso # (Auto) WBC Differential Diff Scan Differential Comment Platelet Estimate Platelet Morphology RBC Morphology Hematology Comments PT INR Puncture Site Right radial Patient Temperature 98.6 O2 Saturation 96 ABG pH 7.42 ABG pCO2 42 ABG pO2 110 ABG HCO3 27 H ABG O2 Content 17.3 ABG Base Excess 2.5 H ABG Methemoglobin 0.9 Brady Test + Hemoglobin 12.7 Carboxyhemoglobin 1.0 O2 Delivery Device Nasal cannula Liter Flow 4.00 Critical Value No Sodium Potassium Chloride Carbon Dioxide Anion Gap BUN Creatinine Estimated GFR POC Glucose Random Glucose Lactic Acid 3.1 H Calcium Total Bilirubin AST ALT Alkaline Phosphatase Troponin I Total Protein Albumin Lipase Urine Color Lucrecia Urine Clarity Cloudy H Urine pH 5.0 Ur Specific Lindley 1.016 Urine Protein Negative Urine Glucose (UA) Negative Urine Ketones Negative Urine Occult Blood Small H Urine Nitrate Negative Urine Bilirubin Negative Urine Urobilinogen 2.0 H Ur Leukocyte Esterase Negative Urine RBC 5 H Urine WBC 14 H Urine WBC Clumps Rare H Ur Squamous Epith Cells 3 Amorphous Sediment Few H Urine Bacteria Rare H Hyaline Casts 43 Urine Mucus Few H Micro UA Comment Cath-culture ind Urine Culture Comments Cath-cult indicated Nasal Screen MRSA (PCR) 09/21/17 09/21/17 09/21/17 11:35 12:18 14:03 WBC 21.7 H RBC 4.47 Hgb 12.1 Hct 38.6 MCV 86.3 MCH 27.2 MCHC 31.5 L RDW 15.1 Plt Count 192 MPV 8.0 Prelim Diff (Auto) Slide review pending Neut % (Auto) 88.2 H Lymph % (Auto) 2.6 L Waller % (Auto) 7.8 Eos % (Auto) 1.4 Baso % (Auto) 0.0 Neut # (Auto) 19.2 H Lymph # (Auto) 0.6 L Waller # (Auto) 1.7 H Eos # (Auto) 0.3 Baso # (Auto) 0.0 WBC Differential . Diff Scan Differential Comment . Platelet Estimate Platelet Morphology RBC Morphology Hematology Comments PT INR Puncture Site Patient Temperature O2 Saturation ABG pH ABG pCO2 ABG pO2 ABG HCO3 ABG O2 Content ABG Base Excess ABG Methemoglobin Brady Test Hemoglobin Carboxyhemoglobin O2 Delivery Device Liter Flow Critical Value Sodium Potassium Chloride Carbon Dioxide Anion Gap BUN Creatinine Estimated GFR POC Glucose 75 Random Glucose Lactic Acid Calcium Total Bilirubin AST ALT Alkaline Phosphatase Troponin I Total Protein Albumin Lipase Urine Color Urine Clarity Urine pH Ur Specific [place] Urine Protein Urine Glucose (UA) Urine Ketones Urine Occult Blood Urine Nitrate Urine Bilirubin Urine Urobilinogen Ur Leukocyte Esterase Urine RBC Urine WBC Urine WBC Clumps Ur Squamous Epith Cells Amorphous Sediment Urine Bacteria Hyaline Casts Urine Mucus Micro UA Comment Urine Culture Comments Nasal Screen MRSA (PCR) Not detected 09/21/17 09/21/17 14:03 14:03 WBC RBC Hgb Hct MCV MCH MCHC RDW Plt Count MPV Prelim Diff (Auto) Neut % (Auto) Lymph % (Auto) Waller % (Auto) Eos % (Auto) Baso % (Auto) Neut # (Auto) Lymph # (Auto) Waller # (Auto) Eos # (Auto) Baso # (Auto) WBC Differential Diff Scan Differential Comment Platelet Estimate Platelet Morphology RBC Morphology Hematology Comments PT INR Puncture Site Patient Temperature O2 Saturation ABG pH ABG pCO2 ABG pO2 ABG HCO3 ABG O2 Content ABG Base Excess ABG Methemoglobin Brady Test Hemoglobin Carboxyhemoglobin O2 Delivery Device Liter Flow Critical Value Sodium 140 Potassium 3.8 Chloride 99 Carbon Dioxide 28.5 Anion Gap 13 BUN 73 H Creatinine 3.79 H Estimated GFR 14 L POC Glucose Random Glucose 100 Lactic Acid 3.0 H Calcium 8.4 L Total Bilirubin AST ALT Alkaline Phosphatase Troponin I Total Protein Albumin Lipase Urine Color Urine Clarity Urine pH Ur Specific [place] Urine Protein Urine Glucose (UA) Urine Ketones Urine Occult Blood Urine Nitrate Urine Bilirubin Urine Urobilinogen Ur Leukocyte Esterase Urine RBC Urine WBC Urine WBC Clumps Ur Squamous Epith Cells Amorphous Sediment Urine Bacteria Hyaline Casts Urine Mucus Micro UA Comment Urine Culture Comments Nasal Screen MRSA (PCR) - Imaging Impressions Abdomen/Pelvis CT 09/21/17 07:06 CONCLUSION: 1. Bladder is decompressed secondary to Lino catheter. No evidence for obstructive uropathy. 2. 2 mm nonobstructing calyceal calculus in the inferior pole of the left kidney. 3. Moderate amount of stool in the rectum. 4. Colonic diverticulosis without definitive evidence for diverticulitis. 5. Additional stable ancillary findings, as above. Chest X-Ray 09/21/17 07:06 CONCLUSION: New irregular opacification of the right mid-upper lung and right perihilar region. Underlying mass is not excluded. If clinically warranted, chest CT could be performed for further evaluation. Head CT 09/21/17 07:06 CONCLUSION: 1. Senescent changes without acute intracranial abnormality. . Chest CT 09/21/17 10:35 CONCLUSION: 1. Large area of right upper lobe pulmonary consolidation. Adjacent large thin- walled cavity with air-fluid level. This finding is new when compared to prior CT of 2016. No discrete central mass is identified. Recommend follow-up to radiographic resolution. 2. Dilated proximal to mid esophagus again seen. Patient has known history of esophageal cancer. 3. Small right pleural effusion. Assessment and Plan - Plan Lung abscess RUL PNA, RUL Respiratory insufficiency, on 100 NRB New onset dyspahia with recent (2 yrs) esophageal cancer history Sepsis ARF probably 2/2 ATN cont abx: zosyn, vancomycin sputum clx to irene abx fu blood clx agree with palliative consult plan starla dgtr @ b/s starla Talamantes
[2017-09-21] MEDS ORDERED: Docusate Sodium 100 MG Capsule PO SCH (21:00)
[2017-09-22] MEDS: Dextrose 5%/NaCl 0.9% Inj 1,000 ML IV.CONT SCH (00:11)
[2017-09-22] MEDS: Insulin NovoLOG Aspart Correctional Sugar Inj SQ SCH (00:11)
[2017-09-22] MEDS ORDERED: Chlorhexidine Gluconate 2% 1 Pack (2 Cloths) TOPICAL SCH (04:00)
[2017-09-22] MEDS ORDERED: Chlorhexidine Gluconate 2% 1 Pack (2 Cloths) TOPICAL PRN (04:00)
[2017-09-22] MEDS: Piperacil/Tazo 2.25 GM Premix 50 ML IV.SIG SCH (04:21)
[2017-09-22 06:01] LABS: Baso # (Auto) 0.6 th/mm3 (0.0-0.2); Eos # (Auto) 0.3 th/mm3 (0.0-0.4); Eos % (Auto) 2.1 % (0.0-4.0); Hematocrit 44.4 % (35.0-46.0); Hemoglobin 14.1 gm/dL (11.6-15.3); Lymph # (Auto) 0.6 th/mm3 (1.0-4.8); Lymph % (Auto) 3.8 % (9.0-44.0); Mean Corpuscular HGB Conc 31.7 % (32.0-36.0); Mean Corpuscular Hemoglobin 27.9 pg (27.0-34.0); Mean Platelet Volume 8.5 fL (7.0-11.0); Mono # (Auto) 0.6 th/mm3 (0.0-0.9); Mono % (Auto) 3.8 % (0.0-8.0); Neut # (Auto) 13.2 th/mm3 (1.8-7.7); Neut % (Auto) 86.3 % (16.0-70.0); Platelet Count 169 th/mm3 (150-450); Red Blood Count 5.05 mil/mm3 (4.00-5.30); Red Cell Distribution Width 15.9 % (11.6-17.2); White Blood Count 15.2 th/mm3 (4.0-11.0)
[2017-09-22 08:59] LABS: Lymphocytes 8 % (9-44); Metamyelocytes 3 % (0-1); Monocytes 10 % (0-8)
[2017-09-22 09:00] LABS: Burr Cells 1+; Platelet Estimate Normal (Normal)
[2017-09-22] MEDS ORDERED: Pantoprazole Inj 40 MG Vial IV.PUSH SCH (09:00)
[2017-09-22 09:01] LABS: Platelet Morphology Normal (Normal)
[2017-09-22] MEDS ORDERED: Sennosides Liq 8.8 MG/5 ML UDC PO SCH (11:00)
--- NOTE | 2017-09-24 15:34 | MD ---
cc: Danyell Sanchez MD DATE OF DISCHARGE: 09/22/2017 DATE OF : 1930 HOSPITAL COURSE: The patient is an 87-year-old female with a past medical history of esophageal cancer, status post chemotherapy and radiation treatment a year ago, CHF, hypertension, who was admitted to [facility] on 09/21/2017 for severe sepsis, altered mental status, right-sided pneumonia, renal failure and lactic acidemia. On arrival to the ER, she was tachycardic, tachypneic, and had a fever with a temperature of 102.8. Her labs on arrival showed leukocytosis with a WBC of 21.1, renal failure with a BUN of 74, creatinine 4.0. In addition, she had mild elevation of lactic acid to 3.1. The patient was started on broad spectrum antibiotics in the ED. In addition, she was given IV fluids. A CT scan of the brain in the ER showed no acute intracranial abnormalities. CT chest showed right upper lobe pulmonary consolidation with a large thin-walled cavity with air-fluid level. Also, she underwent CT of the abdomen and pelvis, which showed colonic diverticulosis, otherwise no evidence of any obstructive uropathy or acute abdominal findings. She was seen by Nephrology Service, Infectious Disease and Palliative Care. Dr. Houston from Palliative Care spoke to the patient's daughter, who is the POA and she made the patient NO CODE, DNR. The patient the following day on 09/22/2017. MD RENATA Cantu/JORY , 03:10 PM , 03:16 PM
[2017-09-25 17:52] VITALS: BP 136/79; PULSE 103; RESP 15; O2SAT 92
[2017-09-25 18:05] VITALS: TEMP 96.9
== END 2017-09-22 06:54 | disposition expired ==
LOC: NEPC 06:26 → NEDA 10:35 → HIMC 12:00
PROVIDERS: ADMIT Internal Medicine Critical Care Medicine; ATTEND Internal Medicine Critical Care Medicine